=== PATIENT | female | born 1965 | race Hispanic/Latino ===

== ENCOUNTER → 2017-09-30 | Outpatient (CLI) | payer BC | LOC: US 10:13 | PROVIDERS: ATTEND Internal Medicine | DX: R09.89 Other specified symptoms and signs involving the circulatory and respiratory systems (principal); R74.8 Abnormal levels of other serum enzymes; E03.9 Hypothyroidism, unspecified | CPT/HCPCS: 93880 ==

== ENCOUNTER → 2017-10-02 | Outpatient (CLI) | payer BC ==
--- NOTE | 2017-10-02 14:42 | Diagnostic Imaging Report ---
PROCEDURE:ABDOMINAL ULTRASOUND COMPARISON:None. INDICATIONS:Elevated Liver Enzymes FINDINGS: Liver: 10.6 cm in length in the right midclavicular line. Increased parenchymal echogenicity without focal mass or intrahepatic biliary ductal dilatation. Main portal vein: 0.6 cm in caliber. Patent with hepatopedal flow. Gallbladder: Surgically absent. Common Bile Duct: 0.3 cm in caliber. No echogenic filling defect. Right kidney: 9.4 cm in length. No solid or cystic mass, echogenic calculi, or hydronephrosis. Normal renal cortical echogenicity. Left kidney: 8.4 cm in length. No solid or cystic mass, echogenic calculi, or hydronephrosis. Normal renal cortical echogenicity. Spleen: 10.5 cm in length. Uniform parenchymal echotexture. Pancreas: The visualized portions of the pancreas are normal. Inferior vena cava: Patent. Aorta: Non-aneurysmal. Ascites: None. CONCLUSION: Increased hepatic parenchymal echogenicity compatible with steatosis. Status post cholecystectomy. Dictated by: Miguel Jang M.D. on 10/02/2017 at 14:52 Electronically approved by: Miguel Jang M.D. on 10/02/2017 at 14:52
--- NOTE | 2017-10-02 14:44 | Diagnostic Imaging Report ---
PROCEDURE: US THYROID COMPARISON: None. INDICATIONS:Hypothyroidism TECHNIQUE: Transverse and longitudinal mckeon-scale sonographic images of the thyroid were obtained and supplemented with color doppler. FINDINGS: Right thyroid lobe: 2.6 x 1.2 x 1.2 cm. Mildly heterogeneous parenchymal echotexture without discrete nodule. Left thyroid lobe: 1.9 x 0.9 x 0.9 cm. Mildly heterogeneous parenchymal echotexture without discrete nodule. Isthmus: 0.2 cm in thickness. CONCLUSION: Diminutive thyroid gland without discrete nodule. Dictated by: Miguel Jang M.D. on 10/02/2017 at 14:53 Electronically approved by: Miguel Jang M.D. on 10/02/2017 at 14:53
== END ==
LOC: US 13:15
PROVIDERS: ATTEND Internal Medicine
DX: R09.89 Other specified symptoms and signs involving the circulatory and respiratory systems (principal); R74.8 Abnormal levels of other serum enzymes; E03.9 Hypothyroidism, unspecified
CPT/HCPCS: 76536; 76700

== ENCOUNTER → 2018-07-22 | Outpatient (CLI) | payer BC ==
--- NOTE | 2018-08-07 08:32 | Diagnostic Imaging Report ---
#[id number] - [id number] #BILATERAL DIGITAL SCREENING MAMMOGRAM WITH CAD: 07/22/2018 CLINICAL: Routine screening. No prior exams were available for comparison. Current study contains 4 films. The tissue of both breasts is predominantly fatty. Current study was also evaluated with a Computer Aided Detection (CAD) system. There are benign calcifications in both breasts. No significant masses, calcifications, or other findings are seen in either breast. IMPRESSION: BENIGN There is no mammographic evidence of malignancy. A 1 year screening mammogram is recommended. The patient will be notified by letter of the results. Josias benson/costa:08/06/2018 12:31:41 [employer]: Elisha CUEVA(R)(M), [facility] letter sent: Normal Exam Mammogram BI-RADS: 2 Benign
== END ==
LOC: MAMMO 09:16
PROVIDERS: ATTEND Internal Medicine
DX: Z12.31 Encounter for screening mammogram for malignant neoplasm of breast (principal)
CPT/HCPCS: 77067

== ENCOUNTER → 2020-06-20 | Outpatient (CLI) | payer BC ==
--- NOTE | 2020-06-20 11:15 | Diagnostic Imaging Report ---
Chest, 2 views, 06/20/2020. History: Cough. Comparison: None available. Findings: The cardiomediastinal silhouette and pulmonary vasculature are within normal limits. The lungs are clear without evidence of consolidation or pleural effusion. There are no acute osseous or soft tissue abnormalities. Impression: No acute cardiopulmonary abnormality. Signed by: Rafael Miller on 06/20/2020 11:12 AM
== END ==
LOC: MAMMO 09:42
PROVIDERS: ATTEND Internal Medicine
DX: Z12.31 Encounter for screening mammogram for malignant neoplasm of breast (principal); R05 Cough
CPT/HCPCS: 71046; 77067

== ENCOUNTER → 2021-09-05 | Outpatient (CLI) | payer BC | LOC: MAMMO 09:28 | PROVIDERS: ATTEND Internal Medicine | DX: Z12.31 Encounter for screening mammogram for malignant neoplasm of breast (principal); U09.9 Post COVID-19 condition, unspecified | CPT/HCPCS: 71046; 77067 ==

== ENCOUNTER → 2022-09-24 | Outpatient (CLI) | payer BC | LOC: MAMMO 09:28 | PROVIDERS: ATTEND Internal Medicine | DX: Z12.31 Encounter for screening mammogram for malignant neoplasm of breast (principal) | CPT/HCPCS: 77067 ==